=== PATIENT | female | born 1980 | race Caucasian/White ===

== ENCOUNTER → 2017-02-01 19:12 | Outpatient (CLI) | payer MEDICAID | END | disposition home or self-care (01) | LOC: D.SLEEP 08:00 | DX: R06.83 Snoring (principal); G47.8 Other sleep disorders ==

== ENCOUNTER → 2017-02-08 19:45 | Outpatient (CLI) | payer MEDICAID | END | disposition home or self-care (01) | LOC: D.SLEEP 08:00 | DX: G47.33 Obstructive sleep apnea (adult) (pediatric) (principal) ==